=== PATIENT | male | born 1945 | race African-American/Black ===

== ENCOUNTER 2022-03-11 09:19 | Emergency (ER) | payer MEDICAID ==
[~2022-03-11] VITALS: Ht 157.5 cm; Wt 62.7 kg
[2022-03-11] MEDS ORDERED: TAMS-13 PO (09:29)
[2022-03-11 10:00] LABS: ANION GAP 7 mmol/L (8-16); CALCIUM, TOTAL 9.6 mg/dL (8.8-10.5); CARBON DIOXIDE 30 mmol/L (22-29); CHLORIDE 102 mmol/L (98-107); CREATININE 1.17 mg/dL (0.60-1.30); GLUCOSE,RANDOM 84 mg/dL (70-110); POTASSIUM 4.5 mmol/L (3.5-5.1); SODIUM SERUM 139 mmol/L (136-145); UREA NITROGEN, BLOOD 16 mg/dL (7-18)
[2022-03-11 10:01] LABS: GLOMERULAR FILTR. RATE CALC > 60 mL/min (>60)
[2022-03-11] MEDS ORDERED: TAMS-1 PO (12:19)
[2022-03-11 12:20] VITALS: BP 188/90
[2022-03-11 12:24] LABS: APPEARANCE,URINE CLEAR (CLEAR); BILIRUBIN,URINE NEGATIVE (NEGATIVE); GLUCOSE, URINE (UA) NEGATIVE (NEGATIVE); KETONES,URINE NEGATIVE (NEGATIVE); LEUKOCYTE ESTERASE ,URINE NEGATIVE (NEGATIVE); NITRATE,URINE NEGATIVE (NEGATIVE); OCCULT BLOOD,URINE TRACE (NEGATIVE); PROTEIN,URINE NEGATIVE (NEGATIVE); SPECIFIC GRAVITIY, URINE 1.011 (1.003-1.030); UROBILINOGEN,URINE <=1.0 mg/dL (<=1.0)
[2022-03-11 12:49] LABS: BACTERIA,URINE None Seen /HPF (None Seen); RBC,URINE 0-2 /HPF (0-2); SQUAMOUS EPITHELIAL CELL,UR None Seen /LPF (None Seen); WBC,URINE None Seen /HPF (0-5)
== END 2022-03-11 16:22 | disposition home or self-care (01) ==
LOC: EMS 09:27
DX: R39.11 Hesitancy of micturition (principal); Z76.0 Encounter for issue of repeat prescription
CPT/HCPCS: 80048; 81001; 99283

== ENCOUNTER 2022-04-13 17:11 | Emergency (ER) | payer MEDICAID ==
[~2022-04-13] VITALS: Ht 134.6 cm; Wt 63.6 kg
[~2022-04-13 17:11] MED LIST: TAMS-1 PO; TAMS-13 PO
[2022-04-13 17:32] VITALS: BP 174/117
[2022-04-13] MEDS ORDERED: TAMS-13 PO (17:35)
== END 2022-04-13 17:43 | disposition home or self-care (01) ==
LOC: EMS 17:11
DX: I10 Essential (primary) hypertension (principal); Z76.0 Encounter for issue of repeat prescription; Z79.899 Other long term (current) drug therapy
CPT/HCPCS: 99281; Z7502